=== PATIENT | female | born 1970 | race Caucasian/White ===

== ENCOUNTER 2016-06-26 05:27 | Day surgery (SDC) | payer OTHER ==
[~2016-06-26] VITALS: Ht 165.1 cm; Wt 74.8 kg
--- NOTE | ~2016-06-26 | EKG ---
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
--- NOTE | ~2016-06-26 | O ---
[facility] [place] [address] OPERATIVE REPORT Name: SAPPHIRE HERNANDEZ Room #: 150-1 [facility].#: [id number] Admission: 06/26/16 Attend Phys: Russ Alexandra, Discharge: Date of : 66 Report #: [id number] THIS REPORT FOR: //name// CC: Shoshana Alexandra DATE OF SERVICE: 06/26/2016 PREOPERATIVE DIAGNOSES: Abnormal, postmenopausal bleeding with a prior history of MICHAELLE exposure in utero. Also, having had a history of recurrent abnormal cervical lesions and had 3 prior laser procedures of the cervix. She was noted to have cervical stenosis. POSTOPERATIVE DIAGNOSES: Abnormal, postmenopausal bleeding with a prior history of MICHAELLE exposure in utero. Also, having had a history of recurrent abnormal cervical lesions and had 3 prior laser procedures of the cervix. She was noted to have cervical stenosis. ____. PROCEDURE: Hysteroscopy, D and C. SURGEON: Russ Alexandra MD ANESTHESIA: General. COMPLICATIONS: None. DESCRIPTION OF THE OPERATION: The patient was placed into the operating room and given adequate anesthesia, placed in the stirrups. She was prepped and draped. A weighted speculum was placed in the posterior vagina. Anterior lip of the cervix grasped with tenaculum. She had an extremely almost non-identifiable cervical os. I was able to slightly open it up and then the endocervical curettage, hysteroscopy ____ and no viable cervical opening of significance. We were able to do a slight endometrial curetting, but no significant tissue noted. I was concerned about possible perforation of the lateral uterus with no ____ cervical canal. At this point, no further procedure was done. The tenaculum removed from the cervix. It was hemostatic. The weighted speculum was removed. The sponge and instrument count correct. There were no problems. She was placed back in the supine position and taken to the recovery room in stable condition. By: [phone] Russ Alexandra MD /nt
--- NOTE | ~2016-06-26 | H ---
[facility] [place] [address] HISTORY AND PHYSICAL Name: SAPPHIRE HERNANDEZ Room #: 150-1 [facility]..#: [id number] Admission: 06/26/16 Attend Phys: Russ Alexandra, Discharge: Date of : 66 Report #: [id number] THIS REPORT FOR: //name// CC: Shoshana Alexandra DATE OF SERVICE: 06/26/2016 DATE OF SCHEDULED SURGERY: 06/26/2016. REASON FOR SURGERY: Abnormal uterine bleeding, possible postmenopausal bleeding. HISTORY OF PRESENT ILLNESS: This is a 45-year-old, she had a recent normal Pap smear, although she has had a history of recurrent abnormal Pap smears including 3 previous laser procedures of the cervix. She has to verify documentation that she was exposed to MICHAELLE in utero. She has seen previously in consultation. She has never been . She states she has been having some irregular bleeding as well as hot flashes. On recent lab work, her FSH was 76.4 with an estradiol of less than 5 and a progesterone of less than 0.1 suggestive of menopausal levels. Based on that, she underwent a pelvic ultrasound. The uterus measured 7 cm. The endometrium was 6.3 mm. She had a 2.8 cm fibroid. She had small bilateral ovarian cysts, the right side measuring 1.7 and the left measuring 1.7. She did have a CA-125 level which was 20.6, which is considered normal. However, based on her hormone levels being postmenopausal in status and having abnormal bleeding and thickened endometrium, after discussing options, she has elected to have further evaluation with a hysteroscopy and D and C. Procedure, risks, and recovery as well as alternative options have been discussed with the patient. PAST HISTORY: The patient has never been . She has had a history of abnormal Pap smears. She had a history of high cholesterol. She has had prior laser of the cervix. FAMILY HISTORY: Positive for endometrial cancer as well as diabetes. SOCIAL HISTORY: She has never smoked. 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 ALLERGIES: To PENICILLIN. CURRENT MEDICATIONS: Flonase spray and probiotic. REVIEW OF SYSTEMS: Positive for abnormal bleeding. Denies any fever or chills. No nausea or vomiting. No diarrhea, no dysuria, no real chest pain or shortness of breath. [facility] [address] [place] [address] HISTORY AND PHYSICAL Name: SAPPHIRE HERNANDEZ Room #: 150-[address] [place] [address] Liya#: [id number] Admission: 06/26/16 Attend Phys: Russ Alexandra, Discharge: Date of : 66 Report #: [id number] PHYSICAL EXAMINATION: GENERAL: She is 5 feet 4-1/2 inches with a weight of 165 and a BMI of 28. VITAL SIGNS: Blood pressure is 120/70. CHEST: Lungs were found to be clear. CARDIOVASCULAR: She had a regular rate and rhythm. NECK: Revealed no thyroid nodules. No supraclavicular adenopathy. ABDOMEN: Soft, nontender. No masses, rebound or guarding. PELVIC: There is no evidence of any lesions. Bimanual is without any significant masses or pain. ASSESSMENT AND PLAN: Because of her blood levels indicating the menopausal levels, some abnormal bleeding and the endometrial thickness, she is to undergo evaluation with a hysteroscopy and D and C after alternative options have been discussed with the patient. The procedure, risks and recovery have been discussed with the patient. <ELECTRONICALLY SIGNED> By: Russ Alexandra MD 06/26/16 0719 [id number] [id number] Russ Alexandra MD /nt
[~2016-06-26 05:27] MED LIST: VITAMIN B-1250 MC2 PO; VITAMIN D5000 UNIT PO
[2016-06-26 06:30] VITALS: BP 112/71
[2016-06-26 06:52] LABS: HEMATOCRIT 41.4 % (37.0-47.0); HEMOGLOBIN 14.2 gm/dL (12.0-15.0)
== END 2016-06-26 08:40 | disposition home or self-care (01) ==
LOC: OR → TBA 05:27 → OR 05:27
PROVIDERS: Obstetrics & Gynecology
DX: N95.0 Postmenopausal bleeding (principal); N88.2 Stricture and stenosis of cervix uteri; K21.9 Gastro-esophageal reflux disease without esophagitis; E78.00 Pure hypercholesterolemia, unspecified; Z83.3 Family history of diabetes mellitus; Z80.49 Family history of malignant neoplasm of other genital organs
CPT/HCPCS: 50010; 50101; 70005

== ENCOUNTER → 2018-04-03 | Outpatient (CLI) | payer OTHER | LOC: RAD 10:45 | DX: Z12.31 Encounter for screening mammogram for malignant neoplasm of breast (principal) ==

== ENCOUNTER → 2019-08-18 | Outpatient (CLI) | payer OTHER | LOC: RAD 11:19 | DX: Z12.31 Encounter for screening mammogram for malignant neoplasm of breast (principal) ==

== ENCOUNTER → 2019-10-13 | Outpatient (CLI) | payer OTHER ==
[~2019-10-13] MED LIST changes: +ESTRADIOL1 EAC5 TRANSDERM; +HYDROCODON-ACE1 EAC7 PO; +IBUPROFEN 400400 M2 PO
== END ==
LOC: LAB 10-11 07:58
PROVIDERS: ATTEND Student in an Organized Health Care Education/Training Program
DX: Z03.818 Encounter for observation for suspected exposure to other biological agents ruled out (principal)

== ENCOUNTER 2019-10-15 08:48 | Inpatient (IN) | payer OTHER ==
[~2019-10-15] VITALS: Ht 165.1 cm; Wt 66.2 kg
--- NOTE | ~2019-10-15 | O ---
[facility] [place] [address] OPERATIVE REPORT Name: SAPPHIRE HERNANDEZ Room #: 439-P [facility] IN M.R.#: [id number] Admission: 10/15/19 Attend Phys: Grisel Pantoja DO Discharge: Date of : 66 Report #: [id number] THIS REPORT FOR: cc: Tatyana Duron MD,Grisel Bradshaw MD, DO ~ CC: Grisel Duron DATE OF SERVICE: 10/15/2019 PREOPERATIVE DIAGNOSES: 1. Persistent abnormal Pap smears of the cervix. 2. MICHAELLE exposure in utero. 3. Menopausal symptoms. POSTOPERATIVE DIAGNOSES: 1. Persistent abnormal Pap smears of the cervix. 2. MICHAELLE exposure in utero. 3. Menopausal symptoms. 4. Fibroid uterus as well as cervical stenosis. OPERATIVE PROCEDURE: Total abdominal hysterectomy with bilateral salpingo-oophorectomy. SURGEON: Grisel Pantoja DO ANESTHESIA: General. INTRAVENOUS FLUIDS: 1200 mL. URINE OUTPUT: 125 mL. ESTIMATED BLOOD LOSS: 50 mL. COMPLICATIONS: None. PATHOLOGY: Uterus with cervix, bilateral fallopian tubes and ovaries. DESCRIPTION OF PROCEDURE: The patient was taken to the operating room where general anesthesia was administered to be adequate. She was then prepped in normal sterile fashion in dorsal lithotomy position. A Valentino catheter was placed in the patient's bladder. The bladder was drained of urine. A Marla retractor was placed anteriorly and posteriorly in the patient's vagina. The cervix was identified and noted to be completely flush with the upper aspect of [facility] [address] [place] [address] OPERATIVE REPORT Name: SAPPHIRE HERNANDEZ Room #: 439-P [facility] IN .R.#: [id number] Admission: 10/15/19 Attend Phys: Grisel Pantoja DO Discharge: Date of : 66 Report #: [id number] the apex of the vagina. The cervical stump was grasped with a tenaculum and cervical dilation was attempted without success due to severe cervical stenosis. At this point in time, any cervical manipulation was aborted and it was decided to proceed with the procedure in an open fashion. All instrumentation was taken out of the patient's vagina. The legs were taken out of lithotomy position and attention was turned to the patient's abdomen after sterile gloves were changed. A Pfannenstiel skin incision was made in the patient's abdomen approximately 2 cm above the symphysis pubis and carried through to the underlying layer of fascia. The fascia was nicked in the midline. The incision was extended laterally with Emmanuel scissors. The superior aspect of the fascial incision was grasped with Alexandra clamps, elevated and the underlying rectus muscle dissected off bluntly as well with Emmanuel scissors. Attention was then turned to the inferior aspect, which in a similar fashion was grasped with Alexandra clamps, elevated and the underlying rectus muscle dissected off bluntly and with Emmanuel scissors. The rectus muscles were in the midline. The peritoneum was identified and tented with curved stats and entered sharply with Metzenbaum scissors. The peritoneal incision was then extended superiorly and inferiorly with good visualization of the patient's pelvis. An O'Rick-O'Ramos retractor was placed in the patient's abdomen and then the patient was placed in slight Trendelenburg position. The bowel was then packed cephalad with moist laparotomy sponges. The uterus was identified and grasped with a Lucero tenaculum and brought towards the hysterotomy incision. The bladder blade of the O'Rick-O'Ramos retractor was then placed in the patient's abdomen. The patient's right fallopian tube and ovary were then grasped with a Rhona clamp and using the LigaSure device, these were amputated from the uterus and the infundibulopelvic ligament was also transected. Once completely freed, the fallopian tube and ovary were handed off for pathology. Attention was then turned to the patient's left adnexa, where in the similar fashion, the left fallopian tube and ovary were grasped with a Rhona clamp and using the LigaSure device, the infundibulopelvic ligament were transected as well as the uteroovarian ligament and the fallopian tube at the cornua of the uterus and further dissection across directly placed beneath the fallopian tube and mesosalpinx were performed with the LigaSure device to completely remove the fallopian tube and ovary on the left. These were then handed off to pathology. The patient's round ligaments were then transected bilaterally using the LigaSure device followed by the broad ligaments. The vesicouterine peritoneum was then identified and grasped with a DeBakey. The tissue was undermined using Metzenbaum scissors and then transected. Further dissection of the vesicouterine peritoneum off the anterior aspect of the uterus and cervix was performed using a moist Ray-Milagros sponge. Once this was sufficiently dissected bluntly, the uterine arteries as well as cardinal ligament complexes were then transected using the LigaSure device. Once proper dissection bilaterally was performed, Z clamps were then used to clamp beneath the patient's cervix at the apex of the vagina and the cervical stump was then transected above at the clamps. The uterus and remainder of the cervical stump were passed off for pathology. The vaginal cuff was then created by reapproximating the anterior [facility] [address] [place] [address] OPERATIVE REPORT Name: SAPPHIRE HERNANDEZ Room #: 439-P [facility] IN M.R.#: [id number] Admission: 10/15/19 Attend Phys: Grisel Pantoja DO Discharge: Date of : 66 Report #: [id number] and posterior vaginal mucosa and anterior and posterior pelvic peritoneum in a running locked fashion with 0 Vicryl. Excellent hemostasis was noted at the vaginal cuff. The pelvis was copiously irrigated. The irrigant was removed with suction. All pedicles were noted to be hemostatic bilaterally. Love was placed over the vaginal cuff and the vesicouterine peritoneum was placed in its normal anatomical position. All sponges were removed from the patient's abdomen. The O'Rick-O'Ramos retractor was removed from the patient's abdomen as well. The muscle and peritoneum were then reapproximated using 2-0 Vicryl. The muscles were noted to be hemostatic. The fascia was reapproximated using 0 PDS. Excellent hemostasis was noted in the subcutaneous tissue. This was then reapproximated using 3-0 plain and the skin was closed in a subcuticular stitch using 4-0 Monocryl. The patient tolerated the procedure well. Sponge, lap and needle counts were reported as correct and the patient was taken to the recovery room in stable condition. By: 0744 5 Grisel Pantoja DO /doc
[~2019-10-15 08:48] MED LIST changes: -ESTRADIOL1 EAC5 TRANSDERM; -HYDROCODON-ACE1 EAC7 PO; -IBUPROFEN 400400 M2 PO
[2019-10-15 09:36] VITALS: BP 110/72
[2019-10-15 09:46] LABS: HEMATOCRIT 39.3 % (37.0-47.0); HEMOGLOBIN 13.3 gm/dL (12.0-15.0); MCH 30.7 pg (26.0-34.0); MCHC 33.9 g/dL (28.0-37.0); MCV 90.4 fL (80.0-100.0); RBC 4.35 mil/uL (4.20-5.00); RDW 13.4 % (10.5-14.5); WBC 3.8 thou/uL (4.0-11.0)
[2019-10-15 14:50] VITALS: BP 101/55
[2019-10-15 19:20] VITALS: BP 96/59
--- NOTE | 2019-10-15 19:25 | NUR ---
PT CARE ASSUMED FROM OR AT 1440. A&Ox4. PT LAYING COMFORTABLY IN BED WITH PAIN CONTROLLED WITH PAIN MEDICATION. KPAD IN PLACE. IV PATENT WITH FLUIDS INFUSING. IV PATENT WITH NO REDNESS OR EDEMA. PT URIN OUTPUT WITHIN THE PARAMETERS PER MD.PT IS NOT COMPLAINING OF ANY N/V. FALL PROTOCOL IN PLACE. CALL LIGHT IN REACH. REPORT GIVEN TO LONA DUMONT. SCD'S IN PLACE.
--- NOTE | 2019-10-16 03:06 | NUR ---
SHIFT ASSESSMENT COMPLETED. DRSG TO LOWER ABDOMEN IS C/D/I.SCDS IN PLACE. PT DID NOT WANT TO GET UP TONIGHT-PREFERS TO REST. WATCHING PAIN AND TREATING ACCORDINGLY. MATTSON TO D/D-LIGHT YELLOW U/O. PT DRINKING AND IVF INFUSING. AFEBRILE. TOLERATING CLR LIQUIDS. NO FURTHER CONCERNS.
[2019-10-16 05:57] LABS: HEMATOCRIT 33.3 % (37.0-47.0); MCHC 33.8 g/dL (28.0-37.0); MCV 91.5 fL (80.0-100.0); RBC 3.63 mil/uL (4.20-5.00); RDW 13.2 % (10.5-14.5); WBC 9.4 thou/uL (4.0-11.0)
[2019-10-16 06:02] LABS: HEMOGLOBIN 11.3 gm/dL (12.0-15.0)
[2019-10-16 06:15] LABS: CALCIUM 7.6 mg/dL (8.5-10.1); CREATININE 0.8 mg/dL (0.6-1.0); POTASSIUM 3.6 mmol/L (3.5-5.1); TOTAL BILIRUBIN 2.4 mg/dL (0.2-1.0); TOTAL PROTEIN 5.6 g/dL (6.4-8.2)
[2019-10-16 06:20] VITALS: BP 90/49
[2019-10-16 08:50] VITALS: BP 83/45
--- NOTE | 2019-10-16 10:57 | NUR ---
CONSULT [id number] WAS COMPLETED BY THIS FABRICATION AND ASSEMBLY SUPERVISOR. PATIENT WAS PLEASED FOR THE VISIT. I HAVE INTERACTED WITH HER MANY TIMES WITH PATIENTS.
--- NOTE | 2019-10-16 11:28 | NUR ---
PT CARE ASSUMED AT 0700. A&Ox4. PT HAD MATTSON REMOVED BY DR. ROBLES. PT HAVE BEEN UP TO THE BATHROOM WITH ASSISTANCE. IV PATENT WITH NO REDNESS OR EDEMA, SALINE LOCKED. INCISSION SITE IT DRY CLEAN AND INTACT COVERED WITH DERMABOND. NO VAGINAL BLEEDING PRESENT. BLOOD PRESSURES ARE ON THE SOFTER SIDE. SPOUSE AT BED SITE. PAIN MANAGED WELL WITH PAIN MEDICATION ON BOARD. ANTICIPATED DISCHARGE TOMORROW. CALL LIGHT IN REACH. WILL CONTINUE TO MONITOR.
[2019-10-16 16:39] VITALS: BP 96/58
[2019-10-16 19:33] VITALS: BP 97/53
--- NOTE | 2019-10-17 01:36 | NUR ---
ASSESSED AT START OF SHIFT 0. PT RESTING IN BED. A&OX4. ENCOURAGED AMBULATION. PT WALKED ROUND THE HALLWAYS STATED FELT BETTER AFTERWARDS. PAIN MANAGED BY PO TYLENOL AND HYDROCODONE. HEATING PAD IN PLACE FOR COMFORT. PT DENIES N/V ANTICIPATING D/C TOMORROW. UP AD MELE TO THE BATHROOM. CALL LIGHT IN REACH AND WILL CONT WITH PPOC TILL EOS.
[2019-10-17 04:09] VITALS: BP 92/55
[2019-10-17 08:39] VITALS: BP 112/69
[2019-10-17] MEDS ORDERED: IBUPROFEN 400400 M2 PO (10:18)
[2019-10-17] MEDS ORDERED: HYDROCODON-ACE1 EAC7 PO (10:18)
[2019-10-17] MEDS ORDERED: ESTRADIOL1 EAC5 TRANSDERM (10:18)
[2019-10-17 11:26] VITALS: BP 112/69
--- NOTE | 2019-10-17 12:30 | NUR ---
PT ASSESSED AT START OF SHIFT. DOING WELL. AMBULATING THE HALLS SEVERAL TIMES. EATING AND DRINKING WELL W/O NAUSEA. MINIMAL PAIN. INCISION WELL APPROXIMATED. DR. ROBLES IN THIS AM. PT DISCHARGING AT THIS TIME W/ ALL BELONGINGS.
--- NOTE | 2019-10-19 17:06 | PATH ---
[facility] [place] [address] PATHOLOGY RPT PROCEDURE Name: MONIQUE HERNANDEZ Room #: 439-P [facility] IN .R.#: [id number] Admission: 10/15/19 Date of : 66 Discharge: 10/17/19 Report #: [id number] Path Case #: [id number] [facility] Accession Number: [id number] . 01 Material submitted: . uterus - UTERUS, CERVIX, BILATERAL TUBES AND OVARIES. Modifiers: bilateral . 01 Clinical history: . Menopausal symptoms, dryness. . 02 Diagnosis: Uterus, cervix, bilateral tubes and ovaries, total abdominal hysterectomy with bilateral salpingo-oophorectomy: - Inactive (atrophic) endometrium; negative for hyperplasia or malignancy. - Adenomyosis. - Multiple leiomyomata ranging from 0.5 to 2.0 cm. - Mild chronic cervicitis as well as mild atypical squamous metaplasia. - Bilateral fallopian tubes associated with paratubal cysts. - Bilateral ovaries showing endosalpingiosis, corpora albicantia as well as other physiologic changes. - One ovary showing extensive endometriosis (second ovary per gross description). (IUV/db; 10/18/2019) LBQ 10/19/2019 1145 Local . 02 Electronically signed: . Marga More MD, Pathologist NPI- [id number] . 01 Gross description: . Received in formalin labeled "Monique Hernandez, uterus, cervix, bilateral tubes and ovaries" is a hysterectomy specimen with detached unoriented fallopian tubes and ovaries. The uterus weighs 53 g and measures 7.0 x 4.7 x 4.3 cm. The serosa is pink-millard and smooth. The ectocervix is pink-millard and glistening with a circular cervical os measuring 0.2 cm. The uterus is opened to reveal a 2.0 x 0.2 cm endocervical canal and a 3.4 x 0.6 cm endometrial cavity. Upon sectioning, multiple millard-white whorled leiomyomata are identified, measuring from 0.5-2.0 cm in greatest dimension. The average endometrial thickness is 0.1 cm and the average myometrial thickness is 1.5 cm. The first detached fimbriated fallopian tube measures 3.5 cm in length and 0.7 cm in diameter, and displays an adjacent paratubal cyst measuring 1.4 cm. The second detached fimbriated fallopian tube measures 3.2 cm in length and 0.6 cm in diameter, and displays an adjacent paratubal cyst measuring 2.4 cm. The first detached ovary measures 2.2 x 1.5 x 1.1 cm and weighs 2 g. The second detached ovary measures 2.5 x 1.6 x 1.2 cm and weighs 3 g. The ovaries both display millard-white cerebriform external [facility] [address] [place] [address] PATHOLOGY RPT PROCEDURE Name: MONIQUE HERNANDEZ Room #: 439-P [facility] IN M.R.#: [id number] Admission: 10/15/19 Date of : 66 Discharge: 10/17/19 Report #: [id number] Path Case #: [id number] surfaces and are sectioned to reveal millard-white unremarkable cut surfaces. Environmental Sustainability Manager sections of the specimen are submitted as follows: A1 12:00 cervix A2 6:00 cervix A3 anterior endomyometrium A4 posterior endomyometrium A5 international sales representative leiomyomata A6 first fallopian tube A7 second fallopian tube A8 first ovary A9 second ovary ([facility]; 10/17/2019) [facility] 10/17/2019 1246 Local . 02 Pathologist provided ICD-10: N80.0, D25.9, N72, N83.8 . 02 CPT . 392234 Specimen Comment: A courtesy copy of this report has been sent to [phone] Specimen Comment: [phone], Specimen Comment: Report sent to ,DR CHAMPAGNE / DR CORDOBA Performed at: [address] [facility], [place] [id number] MD Jorge Luis Carrion MD Phone: [phone] Performed at: [address] [facility] [id number] MD Marga More MD Phone: [phone]
== END 2019-10-17 14:12 | disposition home or self-care (01) | DRG 743 ==
LOC: OR 08:48 → TBA 08:49 → OR 09:09 → 4S 14:52 → OR 14:52 → 4S 10-17 14:12
PROVIDERS: ADMIT Obstetrics & Gynecology; ATTEND Obstetrics & Gynecology
DX: N88.2 Stricture and stenosis of cervix uteri (principal); N95.1 Menopausal and female climacteric states; N93.9 Abnormal uterine and vaginal bleeding, unspecified; K21.9 Gastro-esophageal reflux disease without esophagitis; Z88.0 Allergy status to penicillin
CPT/HCPCS: 10102; 50010; 50093; 50101; 50249; 50386; 50400; 50455; 50555; 50558; 50962; 51687; 52265; 52287; 53307; 54118; 56524; 56525; 56526; 62110; 62900; 70005

== ENCOUNTER → 2020-01-03 | Outpatient (CLI) | payer OTHER ==
[~2020-01-03] MED LIST changes: +ESTRADIOL1 EAC5 TRANSDERM; +HYDROCODON-ACE1 EAC7 PO; +IBUPROFEN 400400 M2 PO
== END ==
LOC: LAB 14:19
PROVIDERS: ATTEND Family Medicine
DX: Z20.828 Contact with and (suspected) exposure to other viral communicable diseases (principal)

== ENCOUNTER → 2020-03-03 | Outpatient (CLI) | payer OTHER | LOC: LAB 08:49 | PROVIDERS: ATTEND Specialist | DX: Z20.828 Contact with and (suspected) exposure to other viral communicable diseases (principal) ==

== ENCOUNTER → 2020-03-07 | Outpatient (CLI) | payer OTHER | LOC: LAB 11:39 | PROVIDERS: ATTEND Specialist | DX: Z20.828 Contact with and (suspected) exposure to other viral communicable diseases (principal) ==

== ENCOUNTER → 2020-03-14 | Outpatient (CLI) | payer OTHER | LOC: LAB 12:31 | PROVIDERS: ATTEND Specialist | DX: Z20.828 Contact with and (suspected) exposure to other viral communicable diseases (principal) ==

== ENCOUNTER → 2020-03-28 | Outpatient (CLI) | payer OTHER | LOC: LAB 08:42 | PROVIDERS: ATTEND Specialist | DX: Z20.828 Contact with and (suspected) exposure to other viral communicable diseases (principal) ==

== ENCOUNTER → 2020-04-04 | Outpatient (CLI) | payer OTHER | LOC: LAB 11:25 | PROVIDERS: ATTEND Specialist | DX: Z20.822 Contact with and (suspected) exposure to COVID-19 (principal) ==

== ENCOUNTER → 2020-04-11 | Outpatient (CLI) | payer OTHER | LOC: LAB 14:07 | PROVIDERS: ATTEND Specialist | DX: Z20.822 Contact with and (suspected) exposure to COVID-19 (principal) ==

== ENCOUNTER → 2020-04-18 | Outpatient (CLI) | payer OTHER | LOC: LAB 09:01 | PROVIDERS: ATTEND Specialist | DX: Z20.822 Contact with and (suspected) exposure to COVID-19 (principal) ==

== ENCOUNTER → 2020-10-25 | Outpatient (CLI) | payer OTHER | LOC: BC 07:17 → PAIN 13:43 → BC 13:51 | PROVIDERS: ATTEND Obstetrics & Gynecology | DX: Z12.31 Encounter for screening mammogram for malignant neoplasm of breast (principal) ==

== ENCOUNTER → 2021-03-12 | Outpatient (CLI) | payer OTHER ==
[2021-03-12 13:55] LABS: CHOLESTEROL 305 mg/dL (<200); HDL CHOLESTEROL 70 mg/dL (>40); LDL CHOLESTEROL 212 mg/dL (<100); TC:HDL 4.4 Ratio (Not establshd); TRIGLYCERIDE 118 mg/dL (<150); VLDL 24 mg/dL (<40)
== END ==
LOC: LAB 11:57
PROVIDERS: ATTEND Obstetrics & Gynecology
DX: Z01.419 Encounter for gynecological examination (general) (routine) without abnormal findings (principal); Z79.890 Hormone replacement therapy